=== PATIENT | female | born 1965 | race Caucasian/White ===

== ENCOUNTER 2018-10-07 20:36 | Emergency (ER) | payer OTHER ==
[~2018-10-07] VITALS: Ht 160 cm; Wt 64.0 kg
[2018-10-07 20:42] VITALS: Ht 160 cm; Wt 64.0 kg
--- NOTE | 2018-10-07 22:59 | ERD ---
ER Documentation Chief Complaint Chief Complaint sore throat/cough x 3 days HPI This is a 52-year-old female presents emergency department with complaints of cough, throat pain for about 3 days. 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 LMP: Stated that she does not have any periods anymore. G4, M1. Denies headache, head injury, loss of consciousness, dizziness, neck pain, neck stiffness, throat pain, difficulty swallowing, difficulty breathing lying flat, shoulder pain, chest pain, back pain, abdominal pain, nausea, vomiting, constipation, diarrhea, urinary symptoms, or possibility being , loss of bowel and bladder control, trauma, injury, falls, difficulty walking due to pain, numbness or tingling sensation, calf pain, recent travel, recent major surgery in the last 3 weeks, calf pain, recent long travel, recent exposure to any illness, recent antibiotic use in the last 3 months, fever, chills, seizures. Past medical history: Surgical history: Social: Denies smoking, use of alcoholic beverages, use of illegal drugs. ROS All systems reviewed and are negative except as per history of present illness. Medications Home Meds Active Scripts Carbamide Peroxide* (Debrox*) 6.5% -15 Ml Drops, 10 DROP BOTH EARS BID for 4 Days, EA Prov:PASILAMARÍA MORRIS F 10/07/18 Benzonatate* (Tessalon Perle*) 100 Mg Capsule, 100 MG PO Q8H PRN for COUGH, #20 CAP Prov:PASILABANMARÍA F 10/07/18 Ibuprofen* (Motrin*) 600 Mg Tab, 600 MG PO Q6H PRN for PAIN AND OR ELEVATED TEMP, #30 TAB Prov:PASILABANMARÍA F 10/07/18 Azithromycin* (Zithromax*) 250 Mg Tablet, 250 MG PO .ZPACK DIRECTED, #6 TAB TAKE 500 MG (2 TABS) THE FIRST DAY THEN 250 MG (1 TAB) DAYS 2-5 Prov:PASILABANEDUINAR F 10/07/18 Allergies Allergies: Coded Allergies: No Known Drug Allergies (Verified Allergy, Unknown, 10/07/18) PMhx/Soc Medical and Surgical Hx: pt denies Medical Hx, pt denies Surgical Hx Hx Alcohol Use: No Hx Substance Use: No Hx Tobacco Use: No Smoking Status: Never smoker Physical Exam Vitals Vital Signs Date Temp Pulse Resp B/P (MAP) Pulse Ox O2 O2 Flow FiO2 Time Delivery Rate 10/07/18 97.7 86 16 152/72 97 Room Air 23:19 (98) 10/07/18 98.2 89 18 144/74 97 20:42 (97) Physical Exam Head: Atraumatic Eyes: Normal Conjunctiva ENT: Normal External Ears, Nose and Mouth. Bilateral ears: 100% earwax. No bleeding. No discharge. No hearing loss. No mastoid tenderness. Nose: There is no frontal or maxillary sinus tenderness palpation. Throat: Uvula is in m idline and nondisplaced. Tonsils are +1 bilaterally without redness and without exudates. Tolerating secretions. Patent airway. Speaks full and clear sentences. No tripoding. Neck: Full range of motion. No meningismus. No nuchal rigidity. No signs of meningeal irritation. Resp: Clear to auscultation bilaterally. No accessory muscle use in breathing. Cardio: Regular rate and rhythm, no murmurs Abd: Soft, non tender, non distended. Normal bowel sounds. Negative Pitts sign. Skin: No petechiae or rashes. Color appears normal for ethnicity. No skin tenting. No signs of severe dehydration. Back: No midline or flank tenderness Ext: No cyanosis, or edema Neur: Awake and alert. No neurological deficits. Psych: Normal Mood and Affect Results 24 hrs Current Medications Medications Dose Sig/Montrell Start Time Status Last (Trade) Ordered Route PRN Stop Time Admin Dose Reason Admin 10 ml ONCE ONCE 10/07/18 DC 10/07/18 Guaifenesin/ PO 23:00 23:09 Dextromethorp 10/07/18 23:01 heredia (Robitussin Dm Liquid Cup) Ibuprofen 600 mg ONCE ONCE 10/07/18 DC 10/07/18 (Motrin) PO 23:30 23:13 10/07/18 23:31 Procedures/MDM Diagnostic tests: Clinical exam. Treatment: Robitussin. Motrin. Re-evaluation: No episode of emesis in the emergency department. No difficulty swallowing. Denies chest pain. No accessory muscle use in breathing. Lung sounds are clear to auscultation. Stated that she feels much better at this time and that she is ready to go home. Patient and family member stated that they are comfortable going home. Differential diagnosis I have low suspicion for sepsis, meningitis, mastoiditis, peritonsillar abscess, airway obstruction, anaphylaxis, anaphylactic shock, pneumonia, bronchospasms, severe dehydration. Final diagnosis: Bronchitis. Sore throat. Prescription: Azithromycin. Tessalon Perles. Motrin. Debrox. Follow-up with PCP in the next 24-48 hours. Come back here in the emergency department for any new symptoms or any worsening symptoms. All questions and concerns were answered. Patient and family members verbalized understanding and agreed with plan of care. Hemodynamically stable on discharge. Departure Diagnosis: Primary Impression: Sore throat Additional Impressions: Bronchitis Cerumen impaction Condition: Stable Additional Instructions: Follow-up with PCP in the next 24-48 hours. Come back here in the emergency department for any new symptoms or any worsening symptoms. MARÍA FREY Oct 07, 2018 22:58
[2018-10-07] MEDS ORDERED: GUAIFENESIN/DM 5ML CUP PO ONE (23:00)
[2018-10-07] MEDS ORDERED: IBUP-1542 PO (23:08)
[2018-10-07] MEDS ORDERED: BENZ-6 PO (23:08)
[2018-10-07] MEDS ORDERED: AZIT250T PO (23:08)
[2018-10-07] MEDS ORDERED: CARB-155 BOTH EARS (23:10)
[2018-10-07 23:19] VITALS: BP 152/72; PULSE 86; RESP 16
[2018-10-07] MEDS ORDERED: IBUPROFEN 600 MG TAB PO ONE (23:30)
== END 2018-10-07 23:40 | disposition home or self-care (01) ==
LOC: FTE 20:36
DX: J02.9 Acute pharyngitis, unspecified (principal); J40 Bronchitis, not specified as acute or chronic; H61.23 Impacted cerumen, bilateral
CPT/HCPCS: Z7502; Z7610; 99283